=== PATIENT | male | born 1945 | race Caucasian/White ===

== ENCOUNTER → 2016-12-29 | Outpatient (CLI) | payer MEDICARE, OTHER | END | disposition home or self-care (01) | LOC: MRI 10:59 | PROVIDERS: ATTEND Psychiatry & Neurology Neurology | DX: M50.01 Cervical disc disorder with myelopathy, high cervical region (principal); M51.16 Intervertebral disc disorders with radiculopathy, lumbar region ==

== ENCOUNTER → 2017-01-19 | Outpatient (CLI) | payer MEDICARE, OTHER | LOC: GMAJ 13:05 | PROVIDERS: ATTEND Family Medicine | DX: E53.8 Deficiency of other specified B group vitamins (principal); E29.9 Testicular dysfunction, unspecified ==

== ENCOUNTER → 2017-01-30 | Outpatient (CLI) | payer MEDICARE, OTHER | LOC: GMAJ 14:37 | PROVIDERS: ATTEND Family Medicine | DX: D64.9 Anemia, unspecified (principal) ==

== ENCOUNTER 2017-04-02 17:00 | Inpatient (IN) | payer MEDICARE, OTHER ==
--- NOTE | 2017-04-02 17:29 | HP ---
SUPERVISING PHYSICIAN: Moises Contreras MD CHIEF COMPLAINT: Worsening shortness of breath. HISTORY OF PRESENT ILLNESS: Mr. Weaver is a 71 year-old male patient of Dr. Contreras. He has a longstanding history of chronic obstructive pulmonary disease. He was initially seen in the clinic on March [address] Contreras for exacerbation of COPD with bronchitis and was started on Levaquin and a Medrol tapering Dosepak. He had minimal response and returned to the clinic once again and was seen and given a Rocephin shot and placed on Augmentin. He has chronic obstructive pulmonary disease and a previous smoker with a 100 pack year history of smoking but having stopped the last 10 years. He noted that he continues to have severe shortness of breath and now a worsening productive cough that is becoming more purulent. In the clinic it was noted that on room air his saturation was in the 80s. He does wear oxygen at night. Given that he had failed to respond to outpatient treatment plan with multiple rounds of antibiotics and steroids and continued to show decline clinically, Dr. Contreras requested the patient be directly admitted to the hospital for initiation of parenteral antibiotics as well as more aggressive corticosteroid administration with Solu-Medrol and aggressive pulmonary hygiene in efforts to improve the patient's clinical presentation. The patient was directly admitted in stable condition. PAST MEDICAL HISTORY: 1. Hypertension. 2, Diabetes mellitus type 2. 3. 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 4. Renal insufficiency. 5. Chronic obstructive pulmonary disease. 6. History of chronic tobacco abuse with a smoking history of 100 pack per year , having quit within the last 10 years. 7. History of alcohol abuse. PAST SURGICAL HISTORY: None listed. CURRENT MEDICATIONS: 1. Spiriva 18 mcg daily. 2. Testosterone 200 mg IM ever 2 weeks. 3. Tamsulosin 0.4 mg at bedtime. 4. Daliresp 500 mcg daily. 5. Folic acid, iron, on tablet daily. 6. Flomax 64 mg daily. 7. Sadorus 10/325, 1 as needed twice a day. 8. Glimepiride 2 mg daily. 9. Nexium 40 mg daily. 10. Trulicity 0.7 mg subcu weekly. 11. Vitamin B12 injections 1000 mcg IM monthly. 12, Citalopram 40 mg daily, 13. Symbicort 160-4.5 mcg per actuation, one actuation b.i.d. 14. Albuterol succinate inhaler 2 puffs every 6 hours as needed p.r.n. ALLERGIES: NO KNOWN DRUG ALLERGIES. FAMILY HISTORY: Unremarkable. 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 He lives at home with his . He stopped smoking 10 years previous, before that had a history of smoking 100 packs year and he does have a remote history of alcohol abuse. REVIEW OF SYSTEMS: CONSTITUTIONAL: He denies fever or chills but notes he has had some weight loss ongoing for the last several years. HEENT: He has decreased hearing, no changes in vision. LUNGS: Chronic shortness of breath with a worsening cough, utilizing oxygen at home. CARDIOVASCULAR: Denies chest pains, palpitations or syncopal episodes. ABDOMEN : No nausea, vomiting, diarrhea or constipation. GENITOURINARY: Denies dysuria, hematuria or there urinary symptoms. NEUROLOGICAL: Denies syncopal episodes or neurological deficits. PHYSICAL EXAMINATION: GENERAL: On admission the patient appeared to be without any acute distress, although showing some low saturations without oxygen. He is alert and oriented x3. HEENT: Tympanic membranes and bilateral oropharynx pink. Mucous membranes slightly dry. NECK: No jugular venous distention. Neck supple, non-tender without full range of motion. CHEST: Breath sounds diminished bilaterally with some mild expiratory wheezing with a cough. CARDIOVASCULAR: Heart regular rate and rhythm without appreciable murmurs, gallops, or rubs. ABDOMEN: Soft, non-tender with positive bowel sounds. EXTREMITIES: No cyanosis, clubbing, or edema. NEUROLOGIC: He was alert and oriented x 3. LABORATORY: White count on admission 7.1, hemoglobin 11.6, hematocrit 36.1, platelet count 160,000, differential shows start of early left shift. Coagulation studies were not done. Chemistries showed normal electrolytes with potassium 4.1, BUN slightly elevated at 44, creatinine 1.08, glucose 167. Liver functions within normal limits. Urinalysis pending. RADIOLOGY: Chest x-ray pending. ASSESSMENT: 1. Acute exacerbation of chronic obstructive pulmonary disease having failed to respond to outpatient treatment therapy with multiple rounds of antibiotics. Now with concerns for developing pneumonia in a patient who is 02 dependent. 2. Hypertension. 3. Diabetes mellitus type 2. 4. Chronic anemia, hyperchromic, macrocytic indices. 5. Mild renal insufficiency with patient having a longstanding history of chronic kidney disease. PLAN: The patient is directly admitted to the hospital for initiation of antibiotic therapy and further workup. He was started on parenteral antibiotics to include azithromycin and Rocephin. Will also start him on aggressive pulmonary hygiene with chest physical therapy and initial loading dose of Solu-Medrol 125 mg, this to be followed up with 80 mg every 6 hours. He will be on 02 as needed, maintain 02 saturations greater than 92 to 94%. DVT prophylaxis as per protocol. Will anticipate length of stay to be 2 to 3 days. Until discharge we will continue to monitor him appropriately. #[id number] [facility]
[2017-04-02] MEDS ORDERED: DEXTROSE 50% 25 GM/50 ML SYG IV PRN (17:36)
[2017-04-02] MEDS ORDERED: ACETAMINOPHEN 325 MG TAB PO PRN (17:36)
[2017-04-02] MEDS ORDERED: GLUCAGON INJ 1 MG VIAL SUBCU PRN (17:36)
[2017-04-02] MEDS ORDERED: ALBUTEROL SULFATE 2.5 MG/3 ML VIAL NEB PRN (17:36)
[2017-04-02] MEDS ORDERED: methylPREDNISolone SODIUM SUC 125 MG/2 ML VIAL IV ONE (17:41)
[2017-04-02] MEDS ORDERED: AZITHROMYCIN IV 500 MG in SODIUM CHLORIDE 0.9% 250ML 250 ML IVPB SCH (18:00)
[2017-04-02] MEDS ORDERED: IV SET AND CAP CHANGE INJ INJ SCH (18:00)
[2017-04-02] MEDS ORDERED: SODIUM CHLORIDE 0.9% 250ML 250 ML ONE (18:18)
[2017-04-02] MEDS ORDERED: SODIUM CHL 0.9% 50ML MIN-BAG+ 50 ML IVPB ONE (18:18)
[2017-04-02] MEDS ORDERED: cefTRIAXone SODIUM 1 GM VIAL ONE (18:18)
[2017-04-02] MEDS ORDERED: AZITHROMYCIN IV 500 MG VIAL IVPB ONE (18:18)
[2017-04-02] MEDS: cefTRIAXone SODIUM 1 GM in SODIUM CHL 0.9% 50ML MIN-BAG+ 50 ML IVPB SCH (18:24)
[2017-04-02] MEDS: IPRATROPIUM/ALBUTEROL 3 ML VIAL INH SCH ×2 (18:30→20:26)
[2017-04-02] MEDS ORDERED: methylPREDNISolone SODIUM SUC 125 MG/2 ML VIAL ONE (20:26)
[2017-04-02] MEDS: NYSTATIN SUSPENSION 5 ML UD MT SCH (20:57)
[2017-04-02] MEDS: guaiFENesin ER TAB 600 MG TAB PO SCH (20:57)
[2017-04-02] MEDS: INSULIN LISPRO 100 UNITS/ML PEN SUBCU SCH (20:57)
[2017-04-02] MEDS: KCL 20MEQ/0.45% NS 1,000 ML IVS PRN (21:39)
[2017-04-03] MEDS: methylPREDNISolone SODIUM SUC 125 MG/2 ML VIAL IV SCH ×5 (00:10→20:12)
[2017-04-03] MEDS: SODIUM CHLORIDE 0.9% (FLUSH) 10 ML SYG IV PRN ×3 (00:12→20:12)
[2017-04-03] MEDS ORDERED: ALUM & MAG HYDROX-SIMETHICONE 30 ML UD PO PRN (00:45)
[2017-04-03] MEDS ORDERED: methylPREDNISolone SODIUM SUC 125 MG/2 ML VIAL ONE ×2 (00:51→07:51)
--- NOTE | 2017-04-03 06:41 | RAD ---
Procedure: XR CHEST 2 VIEWS Exam Date: 04/03/2017 Ordering Provider: Elian Melchor Clinical Indication: Pneumonia Comparison: 09/13/2015 Findings: Cardiac silhouette: Normal Pulmonary vasculature : Normal Mediastinal contour: Normal Aortic contour: Aortic calcification Focal lung consolidation: No focal lung consolidation. Lungs are hyperinflated. Pleural effusion: None Pneumothorax: None Acute bony or soft tissue abnormality: None Impression: 1. No acute abnormalities in the chest. Electronically signed by: Bertram Kumar MD 04/03/2017 6:40 AM CDT
[2017-04-03] MEDS ORDERED: PREGABALIN 25 MG CAP ONE (07:51)
[2017-04-03] MEDS: INSULIN LISPRO 100 UNITS/ML PEN SUBCU SCH ×4 (08:05→21:04)
[2017-04-03] MEDS: NYSTATIN SUSPENSION 5 ML UD MT SCH ×4 (08:30→20:14)
[2017-04-03] MEDS: PREGABALIN 25 MG CAP PO SCH (08:31)
[2017-04-03] MEDS: guaiFENesin ER TAB 600 MG TAB PO SCH ×2 (08:31→20:28)
[2017-04-03] MEDS: CITALOPRAM HBR 20 MG TAB PO SCH (10:00)
[2017-04-03] MEDS: IPRATROPIUM/ALBUTEROL 3 ML VIAL INH SCH ×4 (10:28→21:05)
[2017-04-03] MEDS: KCL 20MEQ/0.45% NS 1,000 ML IVS PRN (12:00)
[2017-04-03] MEDS ORDERED: SODIUM CHL 0.9% 50ML MIN-BAG+ 50 ML IVPB ONE (17:11)
[2017-04-03] MEDS ORDERED: cefTRIAXone SODIUM 1 GM VIAL ONE (17:11)
[2017-04-03] MEDS ORDERED: SODIUM CHLORIDE 0.9% 250ML 250 ML ONE (17:15)
[2017-04-03] MEDS ORDERED: AZITHROMYCIN IV 500 MG VIAL IVPB ONE (17:16)
[2017-04-03] MEDS: cefTRIAXone SODIUM 1 GM in SODIUM CHL 0.9% 50ML MIN-BAG+ 50 ML IVPB SCH (17:21)
[2017-04-03] MEDS ORDERED: PANTOPRAZOLE SODIUM IV 40 MG VIAL IV ONE (17:41)
[2017-04-03] MEDS: AZITHROMYCIN IV 500 MG in SODIUM CHLORIDE 0.9% 250ML 250 ML IVPB SCH (18:42)
[2017-04-03] MEDS: OMEPRAZOLE CAP 20 MG CAP PO SCH (20:14)
[2017-04-03] MEDS: TAMSULOSIN 0.4 MG CAP PO SCH (20:15)
[2017-04-03] MEDS: PREGABALIN 100 MG CAP PO SCH (20:21)
[2017-04-03] MEDS ORDERED: NON-FORMULARY MEDICATION 1 EA MIS (Esomeprazole Magnesium [Nexium] 40 MG) PO SCH (21:00)
[2017-04-03] MEDS: BUDESONIDE/FORMOTEROL 160/4.5 60 PUFF/6 GM INH INH SCH (21:10)
[2017-04-04] MEDS: methylPREDNISolone SODIUM SUC 125 MG/2 ML VIAL IV SCH ×3 (04:15→20:12)
[2017-04-04] MEDS ORDERED: BIFIDOBACTERIUM INFANTIS 4 MG CAP ONE (07:45)
[2017-04-04] MEDS: INSULIN LISPRO 100 UNITS/ML PEN SUBCU SCH ×4 (07:56→21:03)
[2017-04-04] MEDS: PREGABALIN 25 MG CAP PO SCH (08:01)
[2017-04-04] MEDS: NYSTATIN SUSPENSION 5 ML UD MT SCH ×4 (08:01→20:15)
[2017-04-04] MEDS: BIFIDOBACTERIUM INFANTIS 4 MG CAP PO SCH (08:01)
[2017-04-04] MEDS: CITALOPRAM HBR 20 MG TAB PO SCH (08:02)
[2017-04-04] MEDS: guaiFENesin ER TAB 600 MG TAB PO SCH ×2 (08:05→20:11)
[2017-04-04] MEDS: IPRATROPIUM/ALBUTEROL 3 ML VIAL INH SCH ×4 (08:32→20:02)
[2017-04-04] MEDS: BUDESONIDE/FORMOTEROL 160/4.5 60 PUFF/6 GM INH INH SCH ×3 (08:32→20:03)
[2017-04-04] MEDS: TIOTROPIUM INHALER INH SCH ×2 (08:33→08:37)
--- NOTE | 2017-04-04 11:31 | PN ---
SUPERVISING PHYSICIAN: Moises Contreras MD DATE: 04/03/17 SUBJECTIVE: The patient has no complaints of chest pain, nausea, vomiting, or diarrhea. He does complain that he feels like he needs to cough something up, but is unable to do so and prior to several days ago, that is all he did was cough, but he feels like he needs to have the phlegm come up. OBJECTIVE: VITAL SIGNS: Afebrile. Heart rate 90. Blood pressure 121/71. Respiratory rate 18. O2 saturation is 94% on 2 liters nasal cannula. LUNGS: Bilateral rhonchi throughout. He does have a few scattered expiratory wheezes in the upper parts of his lungs. He is still slightly diminished at the bases. CARDIAC: Regular rate and rhythm. ABDOMEN: Soft, nondistended, nontender. Bowel sounds are positive. EXTREMITIES: No cyanosis, clubbing or edema. NEUROLOGIC: Alert and oriented times three. LABORATORY: WBC down to 3.9, hemoglobin 12.5, hematocrit 39.3. Neutrophils are 95.7%. Blood sugars have run between 114 and 258 with the exception of his glucose, chemistries are basically within normal limits except his BUN is elevated at 33. Preliminary blood cultures are negative after 24 hours. Sputum culture is pending. Chest x-ray per radiologic interpretation shows no acute abnormalities in the chest. All other labs and films have been reviewed via the EMR. ASSESSMENT: 1. Acute exacerbation of chronic obstructive pulmonary disease having failed to respond to outpatient treatment therapy with multiple rounds of antibiotics, now with concerns for developing pneumonia in a patient who is 02 dependent. 2. Hypertension. 3. Diabetes mellitus type 2. 4. Chronic anemia, hyperchromic/macrocytic indices. 5. Mild renal insufficiency, improved. The patient does have a longstanding history of chronic kidney disease. PLAN: We will continue present supportive care. I have decreased his Solu- Medrol and will continue to taper that tomorrow. I have ordered routine labs in the morning. Encourage good pulmonary toilet. Continue to monitor his cultures and change antibiotics as appropriate. I have increased his Mucinex to 1200 mg b.i.d. Prior to discharge, he will need a pulmonary function test and hopefully on discharge we can have Dr. Contreras send him to a biological engineer. Otherwise, we will continue to monitor the patient closely and follow as needed. Dr. Contreras is the collaborating physician and available for consultation. [facility][id number] [facility]
[2017-04-04] MEDS ORDERED: SODIUM CHL 0.9% 50ML MIN-BAG+ 50 ML IVPB ONE (17:29)
[2017-04-04] MEDS ORDERED: SODIUM CHLORIDE 0.9% 250ML 250 ML ONE (17:29)
[2017-04-04] MEDS ORDERED: cefTRIAXone SODIUM 1 GM VIAL ONE (17:29)
[2017-04-04] MEDS ORDERED: AZITHROMYCIN IV 500 MG VIAL IVPB ONE (17:29)
[2017-04-04] MEDS: cefTRIAXone SODIUM 1 GM in SODIUM CHL 0.9% 50ML MIN-BAG+ 50 ML IVPB SCH (17:36)
[2017-04-04] MEDS: AZITHROMYCIN IV 500 MG in SODIUM CHLORIDE 0.9% 250ML 250 ML IVPB SCH (18:16)
[2017-04-04] MEDS: OMEPRAZOLE CAP 20 MG CAP PO SCH (20:11)
[2017-04-04] MEDS: TAMSULOSIN 0.4 MG CAP PO SCH (20:11)
[2017-04-04] MEDS: PREGABALIN 100 MG CAP PO SCH (20:11)
[2017-04-04] MEDS: SODIUM CHLORIDE 0.9% (FLUSH) 10 ML SYG IV PRN ×2 (20:11→21:01)
[2017-04-04] MEDS ORDERED: MAGNESIUM SULFATE PREMIX 2GM 2 GM in PREMIX BAG 1 BAG IVPB ONE (20:53)
[2017-04-04] MEDS ORDERED: MAGNESIUM SULFATE PREMIX 2GM 50 ML IVPB ONE (21:00)
--- NOTE | 2017-04-04 21:27 | PN ---
DATE: 04/04/17 SUPERVISING PHYSICIAN: Moises Contreras M.D. SUBJECTIVE: The patient is sitting up in his hospital bed. He is reading his paper. He feels much better today then he has in the past couple of days. He denies any chest pain, abdominal pain, nausea or vomiting. He did say he was coughing up some thick white phlegm but actually his cough is much better than yesterday. OBJECTIVE: VITAL SIGNS: He is afebrile, heart rate 98. It has gone up as high as 105. Blood pressure 106/63, respiratory rate 20, O2 sat is 94% on 2 liters nasal cannula. RESPIRATORY: A few scattered rhonchi in the apices and somewhat diminished at the bases, otherwise clear to auscultation. CARDIAC: Regular rate and rhythm. ABDOMEN: Soft, nondistended, non-tender. Bowel sounds are positive. EXTREMITIES: No cyanosis, clubbing or edema. NEUROLOGIC: He is awake , alert and oriented times three. LABORATORY: Sodium 140, potassium 4, chloride 103, carbon dioxide 31, BUN 28, creatinine 0.84, glucose has run between 179 and 308. Calcium 8.5, magnesium 1.7. WBCs are 8.8, hemoglobin 11.5, hematocrit 35.9, neutrophils 95.3%. Preliminary blood culture showed no growth after 48 hours. All other labs and films have been reviewed via the EMR. ASSESSMENT: 1. Acute exacerbation of chronic obstructive pulmonary disease having failed to respond to outpatient treatment therapy with multiple rounds of antibiotics, now with concerns for developing pneumonia in a patient who is 02 dependent. 2. Hypertension. 3. Diabetes mellitus type 2. 4. Chronic anemia, hyperchromic/macrocytic indices. 5. Mild renal insufficiency, improved. The patient does have a longstanding history of chronic kidney disease. PLAN: We will continue present supportive care. I have decreased his Solu- Medrol and it will be discontinued tonight. I will start him on oral Prednisone tomorrow. Routine labs and chest x-ray in the morning. Will continue to monitor his cultures. I have also ordered a Pulmonary Function Test tomorrow. He has seen Dr. Neil in the past but would like to see a new plan nurse. I will have Dr. Contreras send him to one of the pulmonologists that comes to [facility]. We will continue to monitor the patient closely and follow as needed. Dr. Contreras is the collaborating physician available for consultation. #[id number] [facility]
[2017-04-05 06:22] VITALS: O2SAT 98
--- NOTE | 2017-04-05 06:41 | RAD ---
Procedure: XR CHEST 2 VIEWS Exam Date: 04/05/2017 Ordering Provider: GERARDO HARRIS Clinical Indication: copd Comparison: 04/03/2017 Findings: Cardiac silhouette: Normal Pulmonary vasculature : Normal Mediastinal contour: Normal Aortic contour: Aortic calcification Focal lung consolidation: No focal lung consolidation. Changes of COPD. Pleural effusion: No pleural effusions. Scarring at the left costophrenic angle. Pneumothorax: None Acute bony or soft tissue abnormality: None Impression: 1. No acute abnormalities in the chest. Electronically signed by: Bertram Kumar MD 04/05/2017 6:39 AM CDT
[2017-04-05] MEDS: INSULIN LISPRO 100 UNITS/ML PEN SUBCU SCH ×2 (08:14→12:06)
[2017-04-05] MEDS: CITALOPRAM HBR 20 MG TAB PO SCH (08:56)
[2017-04-05] MEDS: BIFIDOBACTERIUM INFANTIS 4 MG CAP PO SCH (08:57)
[2017-04-05] MEDS ORDERED: predniSONE 20 MG TAB PO SCH (09:00)
[2017-04-05] MEDS: PREGABALIN 25 MG CAP PO SCH (09:01)
[2017-04-05] MEDS: guaiFENesin ER TAB 600 MG TAB PO SCH (09:02)
[2017-04-05] MEDS: NYSTATIN SUSPENSION 5 ML UD MT SCH (09:02)
[2017-04-05] MEDS: IPRATROPIUM/ALBUTEROL 3 ML VIAL INH SCH (09:35)
[2017-04-05] MEDS: TIOTROPIUM INHALER INH SCH (09:35)
[2017-04-05] MEDS: BUDESONIDE/FORMOTEROL 160/4.5 60 PUFF/6 GM INH INH SCH (09:35)
[2017-04-05 11:34] VITALS: BP 108/65; TEMP 97.6
--- NOTE | 2017-04-05 13:48 | DS ---
SUPERVISING PHYSICIAN: Moises Contreras MD DISCHARGE DIAGNOSIS: 1. Acute exacerbation of chronic obstructive pulmonary disease having failed to respond to outpatient treatment therapy with multiple rounds of antibiotics, now with concerns for developing pneumonia in a patient who is 02 dependent. 2. Hypertension. 3. Diabetes mellitus type 2. 4. Chronic anemia, hyperchromic/macrocytic indices. 5. Mild renal insufficiency, improved. The patient does have a longstanding history of chronic kidney disease. HISTORY OF PRESENT ILLNESS: Mr. Weaver is a 71 year-old male patient of Dr. Contreras. He has a longstanding history of chronic obstructive pulmonary disease. He was initially seen in the clinic on March [address] Contreras for exacerbation of chronic obstructive pulmonary disease with bronchitis and was started on Levaquin and a Medrol tapering Dosepak. He had minimal response and returned to the clinic once again and was seen and given a Rocephin shot and placed on Augmentin. He has chronic obstructive pulmonary disease and a previous smoker with a 100 pack year history of smoking but having stopped the last 10 years. He noted that he continues to have severe shortness of breath and now a worsening productive cough that is becoming more purulent. In the clinic it was noted that on room air his saturation was in the 80s. He does wear oxygen at night. Given that he had failed to respond to outpatient treatment plan with multiple rounds of antibiotics and steroids and continued to show decline clinically, Dr. Contreras requested the patient be directly admitted to the hospital for initiation of parenteral antibiotics as well as more aggressive corticosteroid administration with Solu-Medrol and aggressive pulmonary hygiene in efforts to improve the patient's clinical presentation. The patient was directly admitted in stable condition. HOSPITAL COURSE: The patient responded well to his IV Rocephin and azithromycin. He was also given IV steroids that were tapered down. Vital signs stabilized and his oxygen saturations remained in the low to mid 90s over the last 24 to 36 hours. He was afebrile. WBCs were 9.1 with hemoglobin of 11.5 and hematocrit 36. Blood sugars the last 24 hours have been 148 to 216. Chemistries are basically within normal limits with calcium slightly low at 8.1. His preliminary blood cultures were negative after 48 hours. Chest x-ray per radiologic interpretation today shows no acute abnormalities of the chest. He has been up walking in the junior with his oxygen with no acute distress. Clinically, he is much improved since his admission. He will be discharged home today. DISCHARGE PLAN: The patient will be discharged home in stable condition. Pulmonary function test was done today and he had seen Dr. Neil in the past, but does not want to see him again, but he would probably benefit from a pulmonary consult with one of the pulmonologists that come to [facility]. I have also referred him to pulmonary rehab and the will set that up with him on an outpatient basis. He has a followup appointment with Dr. Contreras on 04/10/17 at 2:15. I have discharged him on two additional days of azithromycin as well as giving him a one month supply of guaifenesin and prednisone taper. He is to return to the hospital or call Dr. Contreras' office for any further complications or problems. DISCHARGE MEDICATIONS: 1. Albuterol. 2. Spiriva. 3. Testosterone cypionate. 4. Tamsulosin. 5. Daliresp. 6. Hydrocodone. 7. Glimepiride. 8. Nexium. 9. Cyanocobalamin. 10. Trulicity. 11. Citalopram. 12. Symbicort. 13. Slow-Mag 14. Vitamins. 15. Lyrica. 16. Align. 17. Guaifenesin. 18. Prednisone. 19. Azithromycin. Dr. Contreras is the collaborating physician and available for consultation. #[id number] [facility]
[2017-04-05] MEDS ORDERED: AZITHROMYCIN 250 MG TAB PO SCH (18:30)
[2017-04-09] MEDS ORDERED: NON-FORMULARY MEDICATION 1 EA MIS (Dulaglutide [Trulicity] 0.75 MG) SC SCH (09:00)
== END 2017-04-05 13:00 | disposition home or self-care (01) | DRG 190 ==
LOC: MS 17:00
PROVIDERS: ADMIT Nurse Practitioner Family; ATTEND Nurse Practitioner Acute Care
DX: J44.0 Chronic obstructive pulmonary disease with (acute) lower respiratory infection (principal); J18.9 Pneumonia, unspecified organism; J44.1 Chronic obstructive pulmonary disease with (acute) exacerbation; I12.9 Hypertensive chronic kidney disease with stage 1 through stage 4 chronic kidney disease, or unspecified chronic kidney disease; N18.9 Chronic kidney disease, unspecified; E11.22 Type 2 diabetes mellitus with diabetic chronic kidney disease; D53.9 Nutritional anemia, unspecified; Z99.81 Dependence on supplemental oxygen; Z87.891 Personal history of nicotine dependence; Z79.52 Long term (current) use of systemic steroids; Z79.899 Other long term (current) drug therapy

== ENCOUNTER 2017-05-24 09:28 | Emergency (ER) | payer MEDICARE, OTHER ==
--- NOTE | 2017-05-24 09:52 | CT ---
Procedure: CT HEAD WITHOUT IV CONTRAST Exam Date: 05/24/2017 9:30 AM [employer] Ordering Provider: Bassem Madera Clinical Indication: possible stroke Comparison: None Technique: CT images of the head were obtained without contrast administration. Coronal and sagittal reformats were obtained. This exam was performed according to our departmental dose-optimization program which includes automated exposure control, adjustment of the mA and/or kV according to patient size and/or use of iterative reconstruction technique. Findings: Motion degraded exam. There is no acute cortical infarction, hemorrhage, midline shift, mass effect, or hydrocephalus. Few scattered areas of diminished attenuation are seen involving the subcortical and periventricular white matter, presumable related to small vessel occlusive disease. Mild global parenchymal volume loss is present. The calvaria and skull base are unremarkable. Paranasal sinuses and mastoid air cells are well aerated. Impression: No gross acute intracranial abnormality in the setting of motion degraded exam. Microvascular ischemic changes. Electronically signed by: Allie Weeks MD 05/24/2017 9:50 AM [employer]
[2017-05-24] MEDS ORDERED: SODIUM CHLORIDE 0.9% 1000ML 1,000 ML IVS ONE (10:26)
[2017-05-24] MEDS ORDERED: MAGNESIUM SULFATE INJ 2 GM in SODIUM CHLORIDE 0.9% 100ML 100 ML IVPB ONE (10:59)
[2017-05-24] MEDS ORDERED: MAGNESIUM SULFATE PREMIX 2GM 50 ML IVPB ONE (11:06)
[2017-05-24] MEDS ORDERED: DEXAMETHASONE INJ 4 MG/ML VIAL IV ONE (11:13)
[2017-05-24] MEDS ORDERED: PAMIDRONATE DISODIUM 60 MG in SODIUM CHLORIDE 0.9% 500ML 500 ML IVPB ONE (11:14)
--- NOTE | 2017-05-24 11:44 | RAD ---
Procedure: XR CHEST 1 VIEW Exam Date: 05/24/2017 9:35 AM [employer]ULT [employer]UC[employer] Ordering Provider: Bassem Madera Clinical Indication: hypoxia, ams Comparison: April 05, 2017 Findings: Lungs are hyperexpanded. No lobar consolidation, pleural effusion, or pneumothorax. Heart size is within normal limits. No acute osseous abnormality. Impression: COPD. No acute airspace disease. 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
--- NOTE | 2017-05-24 11:49 | ED.PDOC ---
History of Present Illness - General Chief Complaint: Neuro Symptoms/Deficits Stated Complaint: altered mental status Time Seen by Provider: 05/24/17 09:30 Source: patient, family Exam Limitations: clinical condition - History of Present Illness Initial Comments: the patient is a 71-year-old male presenting to the emergency room secondary to altered mental status and generalized weakness. The patient has been feeling progressively weak over the last 24-36 hours. His started to note some confusion yesterday afternoon. This morning he is very confused and is only able to mutter a few words. He is protecting his airway. He is alert. He moves his extremities to command. Sensation appears grossly preserved. Smile is symmetrical. He is able to close his eyes symmetrically. His eyes track well. His gait is unstable. Timing/Duration: 24 hours Severity: moderate Improving Factors: nothing Worsening Factors: nothing Associated Symptoms: malaise, weakness Allergies/Adverse Reactions: Allergies NO KNOWN ALLERGY Allergy (Unverified 11/03/14 11:54) Home Medications: Ambulatory Orders Albuterol Sulfate [Proair Hfa] 2 puff INH Q6H PRN 09/02/15 Budesonide-Formoterol Fumarate [Symbicort 160-4.5 Mcg/Act] 1 aer IN BID Citalopram Hydrobromide 40 mg PO DAILY 09/02/15 Cyanocobalamin Inj [Vitamin B-12 Inj] 1,000 mcg IM MONTHLY 09/02/15 Dulaglutide [Trulicity] 0.75 mg SC WKLY 09/02/15 Esomeprazole Magnesium [Nexium] 40 mg PO BEDTIME 09/02/15 Glimepiride 2 mg PO DAILY 09/02/15 HYDROcodone 10MG/APAP 325MG [[place] 10/325] 1 ea PO BID PRN 09/02/15 Roflumilast [Daliresp] 500 mcg PO DAILY 09/02/15 Tamsulosin HCl 0.4 mg PO BEDTIME 09/02/15 Testosterone Cypionate 200 mg IM .[id number] 09/02/15 Tiotropium [place] Monohydrate [Spiriva Handihaler] 18 mcg IN DAILY 09/02/15 Magnesium Chloride [Slow-Mag] 64 mg PO AC #30 tab 09/06/15 Vit W/ Ferrous Fumara [Pnv Folic Acid + Iron Mul 27-1 mg] 1 tab PO DAILY #30 tab 09/06/15 Lyrica 50 mg PO QAM 04/02/17 Lyrica 100 mg PO BEDTIME 04/02/17 Pregabalin [Lyrica] 04/02/17 Azithromycin Tab [Zithromax Tab] 250 mg PO DAILY #2 tab 04/05/17 Bifidobacterium Infantis [Align] 4 mg PO DAILY cap 04/05/17 guaiFENesin ER TAB [Mucinex Tab] 1,200 mg PO BID #60 tab 04/05/17 predniSONE See Taper PO DAILY #30 tab 04/05/17 Review of Systems - Review of Systems Constitutional: States: malaise, weakness EENTM: States: no symptoms reported Respiratory: States: no symptoms reported Cardiology: States: no symptoms reported Gastrointestinal/Abdominal: States: nausea - he did have one episode of vomiting yesterday Genitourinary: States: no symptoms reported Musculoskeletal: States: no symptoms reported Skin: States: no symptoms reported Neurological: States: weakness - generalized fatigue Endocrine: States: increased thirst All other Systems: No Change from Baseline Past Medical History (General) - Patient Medical History Hx Seizures: No Hx Stroke: No Hx Asthma: No Hx of COPD: Yes Hx Cardiac Disorders: No Hx Congestive Heart Failure: No Hx Pacemaker: No Hx Hypertension: No Hx Diabetes: Yes Hx MRSA: No Surgical History: no surgical history - Vaccination History Hx Influenza Vaccination: Yes Hx Pneumococcal Vaccination: Yes - Social History Hx Tobacco Use: Yes Hx Alcohol Use: No Hx Substance Use: No Hx Physical Abuse: No Hx Emotional Abuse: No Family Medical History - Family History Father Family History: Unknown Living Status: Physical Exam - Physical Exam General Appearance: Alert, No apparent distress Eye Exam: bilateral normal Ears, Nose, Throat: hearing grossly normal, normal ENT inspection - mucous membranes are fairly dry Neck: full range of motion, supple Respiratory: lungs clear, normal breath sounds, no respiratory distress, no accessory muscle use Cardiovascular/Chest: normal peripheral pulses, no edema, tachycardia, other - he patient appears to be a sinus tachycardia with frequent PACs. Peripheral Pulses: radial,right: 2+, radial,left: 2+, dorsalis pedis,right: 2+, dorsalis pedis,left: 2+ Gastrointestinal/Abdominal: non tender, soft Rectal Exam: deferred Back Exam: no CVA tenderness, no vertebral tenderness Extremity: non-tender, no pedal edema, no calf tenderness, normal capillary refill Neurologic: noteman II-XII nml as tested, alert, disoriented x 3 - the patient is unable to verbally express any functional responses. He does still largely seem to be able to reliably notyes or no to simple questions. Skin Exam: normal color Comments: Vital Signs - 24 hr 05/24/17 05/24/17 05/24/17 09:36 09:47 10:14 Temperature 98.2 F Pulse Rate [ 124 H 118 H Left Brachial] Respiratory 20 20 20 Rate Blood Pressure 159/105 157/98 [Left Arm] O2 Sat by Pulse 100 93 L Oximetry Progress - Progress Progress: 05/24/17 11:52 the patient is a 71-year-old male presenting to emergency room secondary to a progression of symptoms that appear to correspond with his hypercalcemia. He does have some acute renal failure. He is receiving a couple liters of IV fluids here and then he will receive a dose of IV Lasix. We do not have injectable calcitonin so the patient is receiving 2 sprays intranasal calcitonin. He is receiving a dose of IV pamidronate. He is receiving a dose of IV Decadron. He is receiving a dose of IV magnesium secondary to hypomagnesemia. The patient is alert and responsive to simple instructions. He is still having significant confusion however. The patient will be transferred for further evaluation and care. No known history of any malignancy in this patient. No unusual dietary changes are known. He does have a history of significant COPD with steroid usage in the past. A cortisol level has been sent. This is a send out lab. a PTH level has been sent but this is also a send out lab. transferred for higher level of care. I have discussed this patient with nephrology prior to the transfer. Their assistance is appreciated. - Results/Orders Results/Orders: final read on the chest x-ray is pending but I see no evidence of significant cardiomegaly, pneumothorax, pleural effusion or large pneumonia. CT scan of the head shows no evidence of any acute pathology. No hydrocephalus. Laboratory Tests 05/24/17 05/24/17 05/24/17 09:36 09:45 09:45 WBC 10.5 RBC 5.33 Hgb 17.0 Hct 50.7 MCV 95.2 H MCH 31.8 H MCHC 33.5 RDW 14.8 H Plt Count 225 MPV 8.2 Absolute Neuts (auto) 8.90 H Absolute Lymphs (auto) 0.50 L Absolute Monos (auto) 1.00 H Absolute Eos (auto) 0.00 Absolute Basos (auto) 0.00 Neutrophils % 85.2 H Lymphocytes % 5.1 L Monocytes % 9.5 H Eosinophils % 0.1 L Basophils % 0.1 PT INR PTT (SP) pCO2 61 H pO2 65 L HCO3 39.8 ABG pH 7.430 ABG O2 Saturation 93.6 L ABG Base Excess 12.6 ABG Deoxyhemoglobin 6.3 H Oxyhemoglobin % 91.3 L Carboxyhemoglobin % 1.8 H Methemoglobin % Sat 0.6 Calc Total Hemoglobin 15.2 Sodium 139 Potassium 3.6 Chloride 87 L Carbon Dioxide 40 H Anion Gap 15.6 BUN 36 H Creatinine 1.88 H BUN/Creatinine Ratio 19.1 Random Glucose 158 H Serum Osmolality 289.2 Lactic Acid Calcium 16.7 H* Phosphorus Magnesium 1.1 L Total Bilirubin 0.7 AST 25 ALT 19 Alkaline Phosphatase 73 Creatine Kinase 95 CK-MB (CK-2) 2.8 CK-MB (CK-2) % Not Reportable Troponin I 0.11 H* B-Natriuretic Peptide 574.0 H* Serum Total Protein 8.3 H Albumin 4.6 Globulin 3.7 H Albumin/Globulin Ratio 1.2 Amylase Lipase 05/24/17 05/24/17 05/24/17 09:45 09:45 10:27 WBC RBC Hgb Hct MCV MCH MCHC RDW Plt Count MPV Absolute Neuts (auto) Absolute Lymphs (auto) Absolute Monos (auto) Absolute Eos (auto) Absolute Basos (auto) Neutrophils % Lymphocytes % Monocytes % Eosinophils % Basophils % PT 9.8 INR 0.870 PTT (SP) 30.8 pCO2 pO2 HCO3 ABG pH ABG O2 Saturation ABG Base Excess ABG Deoxyhemoglobin Oxyhemoglobin % Carboxyhemoglobin % Methemoglobin % Sat Calc Total Hemoglobin Sodium Potassium Chloride Carbon Dioxide Anion Gap BUN Creatinine BUN/Creatinine Ratio Random Glucose Serum Osmolality Lactic Acid 0.9 Calcium Phosphorus 4.2 Magnesium Total Bilirubin AST ALT Alkaline Phosphatase Creatine Kinase CK-MB (CK-2) CK-MB (CK-2) % Troponin I B-Natriuretic Peptide Serum Total Protein Albumin Globulin Albumin/Globulin Ratio Amylase Lipase 05/24/17 10:29 WBC RBC Hgb Hct MCV MCH MCHC RDW Plt Count MPV Absolute Neuts (auto) Absolute Lymphs (auto) Absolute Monos (auto) Absolute Eos (auto) Absolute Basos (auto) Neutrophils % Lymphocytes % Monocytes % Eosinophils % Basophils % PT INR PTT (SP) pCO2 pO2 HCO3 ABG pH ABG O2 Saturation ABG Base Excess ABG Deoxyhemoglobin Oxyhemoglobin % Carboxyhemoglobin % Methemoglobin % Sat Calc Total Hemoglobin Sodium Potassium Chloride Carbon Dioxide Anion Gap BUN Creatinine BUN/Creatinine Ratio Random Glucose Serum Osmolality Lactic Acid Calcium Phosphorus Magnesium 1.2 L Total Bilirubin AST ALT Alkaline Phosphatase Creatine Kinase CK-MB (CK-2) CK-MB (CK-2) % Troponin I B-Natriuretic Peptide Serum Total Protein Albumin Globulin Albumin/Globulin Ratio Amylase 53 Lipase 15 L EKG shows some sinus tachycardia at a rate of 123 bpm. Normal corrected QT interval. No definitive ST segment changes concerning for any localized ischemia. Mild right axis deviation. Borderline criteria for LVH. - EKG/XRAY/CT CT Ordered: Yes Departure - Departure Clinical Impression: Hypercalcemia, Delirium, Hypomagnesemia Acute renal failure Qualifiers: Acute renal failure type: unspecified Qualified Code(s): N17.9 - Acute kidney failure, unspecified Disposition: Transfer to Hospital Referrals: Moises Contreras MD [Primary Care Provider] - 1-2 Weeks Home Medications: Ambulatory Orders Albuterol Sulfate [Proair Hfa] 2 puff INH Q6H PRN 09/02/15 Budesonide-Formoterol Fumarate [Symbicort 160-4.5 Mcg/Act] 1 aer IN BID Citalopram Hydrobromide 40 mg PO DAILY 09/02/15 Cyanocobalamin Inj [Vitamin B-12 Inj] 1,000 mcg IM MONTHLY 09/02/15 Dulaglutide [Trulicity] 0.75 mg SC WKLY 09/02/15 Esomeprazole Magnesium [Nexium] 40 mg PO BEDTIME 09/02/15 Glimepiride 2 mg PO DAILY 09/02/15 HYDROcodone 10MG/APAP 325MG [[place] 10/325] 1 ea PO BID PRN 09/02/15 Roflumilast [Daliresp] 500 mcg PO DAILY 09/02/15 Tamsulosin HCl 0.4 mg PO BEDTIME 09/02/15 Testosterone Cypionate 200 mg IM .[id number] 09/02/15 Tiotropium [place] Monohydrate [Spiriva Handihaler] 18 mcg IN DAILY 09/02/15 Magnesium Chloride [Slow-Mag] 64 mg PO AC #30 tab 09/06/15 Vit W/ Ferrous Fumara [Pnv Folic Acid + Iron Mul 27-1 mg] 1 tab PO DAILY #30 tab 09/06/15 Lyrica 50 mg PO QAM 04/02/17 Lyrica 100 mg PO BEDTIME 04/02/17 Pregabalin [Lyrica] 04/02/17 Azithromycin Tab [Zithromax Tab] 250 mg PO DAILY #2 tab 04/05/17 Bifidobacterium Infantis [Align] 4 mg PO DAILY cap 04/05/17 guaiFENesin ER TAB [Mucinex Tab] 1,200 mg PO BID #60 tab 04/05/17 predniSONE See Taper PO DAILY #30 tab 04/05/17 Transfer to Outside Facility - Transfer Information Accepting Provider:: dr mcgregor Accepting Facility: [facility] Reason for Transfer: required specialist not available
[2017-05-24 12:32] VITALS: TEMP 98.6
[2017-05-24] MEDS ORDERED: FUROSEMIDE INJ 20 MG/2 ML VIAL ONE (12:54)
[2017-05-24] MEDS ORDERED: FUROSEMIDE INJ 40 MG/4 ML VIAL IV ONE (12:55)
[2017-05-24 13:26] VITALS: BP 160/91; O2SAT 95
[2017-05-25] MEDS ORDERED: CALCITONIN-SALMON NASAL SPRAY 2,200 IU/ML BOTTLE ALTNOS ONE (11:07)
== END 2017-05-24 13:05 | disposition short-term general hospital (02) ==
LOC: ER 09:28
DX: E83.52 Hypercalcemia (principal); E83.42 Hypomagnesemia; R41.0 Disorientation, unspecified; N17.9 Acute kidney failure, unspecified; J44.9 Chronic obstructive pulmonary disease, unspecified; Z79.899 Other long term (current) drug therapy
CPT/HCPCS: 36415; 36600; 70450; 71010; 80053; 81001; 82150; 82550; 82553; 82803; 82805; 83605; 83690; 83735; 83880; 83970; 84100; 84484; 85025; 85610; 85730; 87040; 93005; J1100; J1940; J3475; J7030

== ENCOUNTER → 2017-05-31 | Outpatient (CLI) | payer MEDICARE, OTHER | END | disposition home or self-care (01) | LOC: GMAJ 14:44 | PROVIDERS: ATTEND Family Medicine | DX: D64.9 Anemia, unspecified (principal) ==

== ENCOUNTER 2017-09-07 11:02 | Emergency (ER) | payer MEDICARE, OTHER ==
[2017-09-07 11:37] VITALS: TEMP 98.1
--- NOTE | 2017-09-07 12:00 | ED.PDOC ---
History of Present Illness - General Chief Complaint: Respiratory Problem Stated Complaint: shortness of breath, nausea, constipation Time Seen by Provider: 09/07/17 11:49 Source: patient Exam Limitations: no limitations - History of Present Illness Initial Comments: Patient presents complaining of constipation. He says that he was switched from Lyrica to hydrocodone for diabetic neuropathy but the hydrocodone caused constipation. He had a normal bowel movement two days ago and had a "small one " this morning. No abdominal pain. He thinks he is dehydrated as well. He did urinate "a little" this morning. He recently had a COPD exacerbation and is being treated with prednisone and Levaquin. He says he did not get an X-ray for that. No cough. No dyspnea. Denies chest pain. No other complaints. Timing/Duration: other - two days Severity: mild Improving Factors: nothing Worsening Factors: nothing Associated Symptoms: denies symptoms Allergies/Adverse Reactions: Allergies NO KNOWN ALLERGY Allergy (Unverified 11/03/14 11:54) Home Medications: Ambulatory Orders Albuterol Sulfate [Proair Hfa] 2 puff INH Q6H PRN 09/02/15 Budesonide-Formoterol Fumarate [Symbicort 160-4.5 Mcg/Act] 1 aer IN BID Citalopram Hydrobromide 40 mg PO DAILY 09/02/15 Cyanocobalamin Inj [Vitamin B-12 Inj] 1,000 mcg IM MONTHLY 09/02/15 Dulaglutide [Trulicity] 0.75 mg SC WKLY 09/02/15 Esomeprazole Magnesium [Nexium] 40 mg PO BEDTIME 09/02/15 Glimepiride 2 mg PO DAILY 09/02/15 HYDROcodone 10MG/APAP 325MG [[place] 10/325] 1 ea PO BID PRN 09/02/15 Roflumilast [Daliresp] 500 mcg PO DAILY 09/02/15 Tamsulosin HCl 0.4 mg PO BEDTIME 09/02/15 Testosterone Cypionate 200 mg IM .[id number] 09/02/15 Tiotropium [place] Monohydrate [Spiriva Handihaler] 18 mcg IN DAILY 09/02/15 Magnesium Chloride [Slow-Mag] 64 mg PO AC #30 tab 09/06/15 Vit W/ Ferrous Fumara [Pnv Folic Acid + Iron Mul 27-1 mg] 1 tab PO DAILY #30 tab 09/06/15 Lyrica 50 mg PO QAM 04/02/17 Lyrica 100 mg PO BEDTIME 04/02/17 Pregabalin [Lyrica] 04/02/17 Azithromycin Tab [Zithromax Tab] 250 mg PO DAILY #2 tab 04/05/17 Bifidobacterium Infantis [Align] 4 mg PO DAILY cap 04/05/17 guaiFENesin ER TAB [Mucinex Tab] 1,200 mg PO BID #60 tab 04/05/17 predniSONE See Taper PO DAILY #30 tab 04/05/17 Review of Systems - Review of Systems Constitutional: States: no symptoms reported EENTM: States: no symptoms reported Respiratory: States: no symptoms reported Cardiology: States: no symptoms reported Gastrointestinal/Abdominal: States: see HPI Genitourinary: States: see HPI Musculoskeletal: States: no symptoms reported Skin: States: no symptoms reported Neurological: States: no symptoms reported Endocrine: States: no symptoms reported Hematologic/Lymphatic: States: no symptoms reported Past Medical History (General) - Patient Medical History Hx Seizures: No Hx Stroke: No Hx Asthma: No Hx of COPD: Yes Hx Cardiac Disorders: No Hx Congestive Heart Failure: No Hx Pacemaker: No Hx Hypertension: No Hx Diabetes: Yes Hx Gastroesophageal Reflux: Yes Hx Renal Disease: No Hx MRSA: No Surgical History: no surgical history - Vaccination History Hx Influenza Vaccination: Yes - 2016 Hx Pneumococcal Vaccination: Yes - 2017 - Social History Hx Tobacco Use: Yes Years Tobacco Use: 50 Hx Alcohol Use: No Hx Substance Use: No Hx Physical Abuse: No Hx Emotional Abuse: No Family Medical History - Family History Father Family History: Unknown Living Status: Physical Exam - Physical Exam General Appearance: Alert Eye Exam: bilateral normal Ears, Nose, Throat: normal ENT inspection Neck: non-tender, full range of motion, supple Respiratory: lungs clear, other - distant breath sounds Cardiovascular/Chest: normal peripheral pulses, regular rate, rhythm, no edema Gastrointestinal/Abdominal: normal bowel sounds, non tender, soft Back Exam: no CVA tenderness Neurologic: forest 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 II-XII nml as tested, no motor/sensory deficits, alert Skin Exam: normal color Lymphatic: no adenopathy Progress - Progress Progress: 09/07/17 14:14 Laboratory Tests 09/07/17 09/07/17 09/07/17 12:00 12:00 12:15 WBC 7.4 RBC 4.46 L Hgb 14.4 Hct 42.7 MCV 95.8 H MCH 32.2 H MCHC 33.8 RDW 14.5 Plt Count 246 MPV 7.3 L Absolute Neuts (auto) 6.50 Absolute Lymphs (auto) 0.40 L Absolute Monos (auto) 0.50 Absolute Eos (auto) 0.00 Absolute Basos (auto) 0.00 Neutrophils % 87.0 H Lymphocytes % 5.6 L Monocytes % 7.2 Eosinophils % 0.0 L Basophils % 0.2 Sodium 137 Potassium 4.3 Chloride 97 L Carbon Dioxide 30 Anion Gap 14.3 BUN 21 H Creatinine 1.16 BUN/Creatinine Ratio 18.1 Random Glucose 164 H Serum Osmolality 280.4 Calcium 10.1 Total Bilirubin 0.5 AST 19 ALT 12 Alkaline Phosphatase 60 Serum Total Protein 7.1 Albumin 3.9 Globulin 3.2 Albumin/Globulin Ratio 1.2 Urine Color Yellow Urine Appearance Clear Urine pH 5.5 Ur Specific [place] 1.025 Urine Protein Negative Urine Glucose (UA) Negative Urine Ketones Trace Urine Blood Negative Urine Nitrite Negative Urine Bilirubin Negative Urine Urobilinogen 0.2 Ur Leukocyte Esterase Negative Urine RBC 0 Urine WBC 0 Ur Epithelial Cells 1-3 Urine Bacteria 0 CXR showed signs of the current pneumonia that is already being treated. Patient given one liter NS IV. Given magnesium citrate for constipation and told to increase fluids. Departure - Departure Clinical Impression: Constipation Disposition: Discharge to Home or Self Care Condition: Good Departure Forms: ED Discharge - Pt. Copy, Patient Portal Self Enrollment Diet: other - increase oral fluids Activity: increase activity as tolerated Referrals: Moises Contreras MD [Primary Care Provider] - 1-2 Weeks Home Medications: Ambulatory Orders Albuterol Sulfate [Proair Hfa] 2 puff INH Q6H PRN 09/02/15 Budesonide-Formoterol Fumarate [Symbicort 160-4.5 Mcg/Act] 1 aer IN BID Citalopram Hydrobromide 40 mg PO DAILY 09/02/15 Cyanocobalamin Inj [Vitamin B-12 Inj] 1,000 mcg IM MONTHLY 09/02/15 Dulaglutide [Trulicity] 0.75 mg SC WKLY 09/02/15 Esomeprazole Magnesium [Nexium] 40 mg PO BEDTIME 09/02/15 Glimepiride 2 mg PO DAILY 09/02/15 HYDROcodone 10MG/APAP 325MG [[place] [address]] 1 ea PO BID PRN 09/02/15 Roflumilast [Daliresp] 500 mcg PO DAILY 09/02/15 Tamsulosin HCl 0.4 mg PO BEDTIME 09/02/15 Testosterone Cypionate 200 mg IM .[id number] 09/02/15 Tiotropium [place] Monohydrate [Spiriva Handihaler] 18 mcg IN DAILY 09/02/15 Magnesium Chloride [Slow-Mag] 64 mg PO AC #30 tab 09/06/15 Vit W/ Ferrous Fumara [Pnv Folic Acid + Iron Mul 27-1 mg] 1 tab PO DAILY #30 tab 09/06/15 Lyrica 50 mg PO QAM 04/02/17 Lyrica 100 mg PO BEDTIME 04/02/17 Pregabalin [Lyrica] 04/02/17 Azithromycin Tab [Zithromax Tab] 250 mg PO DAILY #2 tab 04/05/17 Bifidobacterium Infantis [Align] 4 mg PO DAILY cap 04/05/17 guaiFENesin ER TAB [Mucinex Tab] 1,200 mg PO BID #60 tab 04/05/17 predniSONE See Taper PO DAILY #30 tab 04/05/17 Additional Instructions: Increase your oral intake of fluids especially today and tomorrow.
--- NOTE | 2017-09-07 12:34 | RAD ---
EXAM DESCRIPTION: Chest,1 View CLINICAL HISTORY: recent COPD exacerbation COMPARISON: May 21 IMPRESSION: Single AP portable upright view of the chest shows cardiac silhouette and pulmonary vasculature to be within normal limits. Lungs are hyperinflated. Mild increased interstitial markings in the lung bases are slightly more prominent than previous and could represent atelectasis versus developing interstitial infiltrates or pneumonitis. No consolidation is seen. No obvious pleural effusion or pneumothorax is seen. Electronically signed by: David Bailey MD 09/07/2017 12:33 PM FORMULATION CHEMIST
[2017-09-07] MEDS ORDERED: SODIUM CHLORIDE 0.9% 1000ML 1,000 ML IVS ONE (12:45)
[2017-09-07] MEDS ORDERED: MAGNESIUM CITRATE 300 ML BTTL PO ONE (14:13)
[2017-09-07 14:49] VITALS: BP 153/82; O2SAT 98
== END 2017-09-07 14:49 | disposition home or self-care (01) ==
LOC: ER 11:02
DX: K59.00 Constipation, unspecified (principal); E11.9 Type 2 diabetes mellitus without complications; K21.9 Gastro-esophageal reflux disease without esophagitis; J44.9 Chronic obstructive pulmonary disease, unspecified; Z87.891 Personal history of nicotine dependence
CPT/HCPCS: 36415; 71045; 80053; 81001; 85025; J7030

== ENCOUNTER 2017-09-20 21:08 | Inpatient (IN) | payer MEDICARE, OTHER ==
--- NOTE | 2017-09-20 21:48 | RAD ---
EXAM DESCRIPTION: Chest,2 Views CLINICAL HISTORY: sob COMPARISON: 09/07/2017 FINDINGS: Two views of the chest are submitted. Cardiac silhouette appears normal. There is atelectasis at each lung base. The lungs are hyperinflated. There are small bilateral pleural effusions. There is a small right lung base consolidation. IMPRESSION: Right lung base consolidation. Electronically signed by: Mateus Hilton 09/20/2017 9:46 PM CDT
[2017-09-20] MEDS ORDERED: POTASSIUM CHLORIDE ELIXIR 20 MEQ/15 ML UD PO ONE (21:58)
[2017-09-20] MEDS ORDERED: IPRATROPIUM/ALBUTEROL 3 ML VIAL NEB ONE (22:00)
[2017-09-20] MEDS ORDERED: AZITHROMYCIN IV 500 MG in SODIUM CHLORIDE 0.9% 250ML 250 ML IVPB ONE (22:00)
[2017-09-20] MEDS ORDERED: cefTRIAXone SODIUM 1 GM in SODIUM CHL 0.9% 50ML MIN-BAG+ 50 ML IVPB ONE (22:00)
[2017-09-20] MEDS ORDERED: cefTRIAXone SODIUM 1 GM VIAL ONE (22:10)
[2017-09-20] MEDS ORDERED: SODIUM CHLORIDE 0.9% 250ML 250 ML ONE (22:10)
[2017-09-20] MEDS ORDERED: AZITHROMYCIN IV 500 MG VIAL IVPB ONE (22:10)
[2017-09-20] MEDS ORDERED: SODIUM CHL 0.9% 50ML MIN-BAG+ 50 ML IVPB ONE (22:10)
--- NOTE | 2017-09-21 01:14 | ED.PDOC ---
History of Present Illness - General Chief Complaint: Respiratory Problem Stated Complaint: Can't breath Time Seen by Provider: 09/20/17 21:13 Source: patient Exam Limitations: no limitations - History of Present Illness Initial Comments: the patient is a 72-year-old male presenting to the emergency room secondary to feeling like she is having a more difficult time breathing over the last 24-48 hours. The patient was seen in the emergency room a little less than 2 weeks ago and was diagnosed with possible mild pneumonia and a COPD exacerbation. He was apparently placed on prednisone and Levaquin. He completed the course of those medications but reports that he never really got better. He apparently went to see his primary care doctor today but no changes were made. He went back home and felt like he was getting more short of breath so he presented here to the emergency room. He does wear oxygen normally at 3 L and is actually saturating greater than 95% on that. He is very anxious and is feeling significantly short of breath. No fevers. Minimally productive cough. No real chest pain. He does report a significant weight loss over the last 2 weeks. No current sore throat or runny nose but he did have one earlier. No vomiting. Timing/Duration: unsure Severity: moderate Improving Factors: nothing Worsening Factors: nothing Associated Symptoms: cough, shortness of breath Allergies/Adverse Reactions: Allergies NO KNOWN ALLERGY Allergy (Unverified 11/03/14 11:54) Home Medications: Ambulatory Orders Albuterol Sulfate [Proair Hfa] 2 puff INH Q6H PRN 09/02/15 Budesonide-Formoterol Fumarate [Symbicort 160-4.5 Mcg/Act] 1 aer IN BID Tamsulosin HCl 0.4 mg PO BEDTIME 09/02/15 Tiotropium [place] Monohydrate [Spiriva Handihaler] 18 mcg IN DAILY 09/02/15 Ferrous Gluconate [Fergon] 27 mg PO DAILY 09/20/17 Gabapentin (Phn) [Gralise Starter] 1 mis PO BID 09/20/17 Lubiprostone [Amitiza] 8 mcg PO BID 09/20/17 Pantoprazole Sodium 40 mg PO DAILY 09/20/17 Triamcinolone Acetonide (Nasal [Nasacort Allergy 24Hr] 55 mcg NA BID 09/20/17 Review of Systems - Review of Systems Constitutional: States: malaise, weakness EENTM: States: no symptoms reported Respiratory: States: cough, short of breath, wheezing Cardiology: States: no symptoms reported Gastrointestinal/Abdominal: States: no symptoms reported Genitourinary: States: no symptoms reported Musculoskeletal: States: no symptoms reported Skin: States: no symptoms reported Neurological: States: anxiety Endocrine: States: unexplained weight loss Hematologic/Lymphatic: States: no symptoms reported All other Systems: No Change from Baseline Past Medical History (General) - Patient Medical History Hx Seizures: No Hx Stroke: No Hx Dementia: No Hx Asthma: Yes Hx of COPD: Yes Hx Cardiac Disorders: No Hx Congestive Heart Failure: No Hx Pacemaker: No Hx Hypertension: No Hx Thyroid Disease: No Hx Diabetes: Yes Hx Gastroesophageal Reflux: Yes Hx Renal Disease: No Hx Cancer: No Hx of HIV: No Hx Hepatitis C: No Hx MRSA: No Surgical History: no surgical history - Vaccination History Hx Tetanus, Diphtheria Vaccination: Yes Hx Influenza Vaccination: Yes Hx Pneumococcal Vaccination: Yes Immunizations Up to Date: Yes - Social History Hx Tobacco Use: Yes - Quit 10 yrs ago Hx Chewing Tobacco Use: No Hx Alcohol Use: No Hx Substance Use: No Hx Substance Use Treatment: No Hx Depression: No Feels Threatened In a Relationship: No Hx Physical Abuse: No Hx Emotional Abuse: No Hx Suspected Abuse: No - Activities of Daily Living Hospice Agency (if applicable):: None - Female History Patient is a Female of Child Bearing Age (10 -59 yrs old): No Family Medical History - Family History Father Family History: Unknown Living Status: Hx Family Asthma: No Hx Family Congestive Heart Failure: No Hx Family Hypertension: No Hx Family Stroke: No Hx Cardiac Disease: No Hx Family Diabetes: No Hx Family Cancer: No Physical Exam - Physical Exam General Appearance: Alert, Anxious Eye Exam: bilateral normal Ears, Nose, Throat: hearing grossly normal, normal ENT inspection, normal pharynx Neck: full range of motion, supple Respiratory: other - he patient does have mild accessory muscle use. He is in minimal respiratory distress but he is very anxious and feeling short of breath. Mild scattered wheezes. He does have some mild bibasilar Rales as well Cardiovascular/Chest: normal peripheral pulses, no edema, tachycardia Peripheral Pulses: radial,right: 2+, radial,left: 2+, dorsalis pedis,right: 2+, dorsalis pedis,left: 2+ Gastrointestinal/Abdominal: non tender, soft Rectal Exam: deferred Back Exam: no CVA tenderness, no vertebral tenderness Extremity: non-tender, normal inspection, no pedal edema, normal capillary refill Neurologic: slip operator II-XII nml as tested, alert, normal mood/affect, oriented x 3 Skin Exam: normal color Comments: Vital Signs - 24 hr 09/20/17 09/20/17 09/20/17 21:10 22:08 22:10 Temperature 97.6 F 97.8 F Pulse Rate 122 H 123 H 126 H Pulse Rate [ 124 H 126 H Apical] Respiratory 24 23 25 H Rate Blood Pressure 160/99 143/91 [Left Arm] O2 Sat by Pulse 95 95 97 Oximetry 09/20/17 09/21/17 23:00 00:10 Temperature 97.6 F 97.7 F Pulse Rate 123 H 121 H Pulse Rate [ 123 H 121 H Apical] Respiratory 22 20 Rate Blood Pressure 136/87 133/87 [Left Arm] O2 Sat by Pulse 98 96 Oximetry EKG shows sinus tachycardia at a rate of 126 bpm. There is some poorly progression in anterior leads. Mild right axis deviation consistent with chronic pulmonary disease. No acute ST segment changes are obvious. Normal QT interval. Chest x-ray shows right lower lobe infiltrate and changes consistent with COPD. Progress - Progress Progress: 09/21/17 01:17 the patient is a 72-year-old male presenting to the emergency room with worsening shortness of breath. He does appear to be having a mild worsening of his COPD exacerbation and he does have a right lower lobe pneumonia that has not cleared over the last couple of weeks. The patient will be admitted for treatment as an outpatient failure. The patient is receiving Rocephin and azithromycin IV. Blood Culture has been performed. He will also receive Solu-Medrol IV. He will continue his oxygen therapy. He has been receiving nebulizer treatments here. The patient may yet require something for anxiety and air hunger. Admit for further management for outpatient treatment failure of his COPD and pneumonia No evidence of sepsis at this time. the patient does have a mildly elevated CK-MB. Troponin is negative. It may be worth repeating one more time these labs in the morning. He is not having any chest pain. EKG is not indicative of any acute ischemia. The elevation of the CK-MB is more likely related to the pneumonia. 09/21/17 01:21 - Results/Orders Results/Orders: Laboratory Tests 09/20/17 09/20/17 09/21/17 21:26 21:26 00:45 WBC 8.1 RBC 4.13 L Hgb 13.4 L Hct 39.3 L MCV 95.1 H MCH 32.4 H MCHC 34.1 RDW 15.1 H Plt Count 216 MPV 7.0 L Absolute Neuts (auto) 6.60 Absolute Lymphs (auto) 0.60 L Absolute Monos (auto) 0.80 Absolute Eos (auto) 0.10 Absolute Basos (auto) 0.00 Neutrophils % 80.8 H Lymphocytes % 7.3 L Monocytes % 10.1 H Eosinophils % 1.5 Basophils % 0.3 Sodium 137 Potassium 3.0 L Chloride 98 L Carbon Dioxide 28 Anion Gap 14.0 BUN 11 Creatinine 0.68 BUN/Creatinine Ratio 16.2 Random Glucose 119 H Serum Osmolality 274.4 L Calcium 9.3 Total Bilirubin 0.6 AST 21 ALT 17 Alkaline Phosphatase 69 Creatine Kinase 64 66 CK-MB (CK-2) 6.3 H* 6.8 H* CK-MB (CK-2) % 9.84 H 10.30 H Troponin I < 0.02 < 0.02 B-Natriuretic Peptide 94.0 Serum Total Protein 6.7 Albumin 3.6 Globulin 3.1 Albumin/Globulin Ratio 1.2 Departure - Departure Clinical Impression: Acute exacerbation of COPD with asthma Pneumonia Qualifiers: Pneumonia type: due to unspecified organism Laterality: right Lung location: lower lobe of lung Qualified Code(s): J18.1 - Lobar pneumonia, unspecified organism Disposition: Admit Patient Home Medications: Ambulatory Orders Albuterol Sulfate [Proair Hfa] 2 puff INH Q6H PRN 09/02/15 Budesonide-Formoterol Fumarate [Symbicort 160-4.5 Mcg/Act] 1 aer IN BID Tamsulosin HCl 0.4 mg PO BEDTIME 09/02/15 Tiotropium [place] Monohydrate [Spiriva Handihaler] 18 mcg IN DAILY 09/02/15 Ferrous Gluconate [Fergon] 27 mg PO DAILY 09/20/17 Gabapentin (Phn) [Gralise Starter] 1 mis PO BID 09/20/17 Lubiprostone [Amitiza] 8 mcg PO BID 09/20/17 Pantoprazole Sodium 40 mg PO DAILY 09/20/17 Triamcinolone Acetonide (Nasal [Nasacort Allergy 24Hr] 55 mcg NA BID 09/20/17 Decision To Admit - Decistion To Admit Decision to Admit Reason: Medical Nature Decision to Admit Date: 09/21/17 Decision to Admit Time: 01:29
[2017-09-21] MEDS ORDERED: SODIUM CHLORIDE 0.9% 1000ML 500 ML IVS ONE (01:20)
[2017-09-21] MEDS ORDERED: methylPREDNISolone SODIUM SUC 40 MG/ML VIAL IV ONE ×4 (01:20→18:00)
[2017-09-21] MEDS ORDERED: KCL 20 MEQ/NS 1,000 ML IVS PRN (02:16)
[2017-09-21] MEDS ORDERED: ACETAMINOPHEN 325 MG TAB PO PRN (02:16)
[2017-09-21] MEDS ORDERED: MAGNESIUM HYDROXIDE 30 ML UD PO PRN (02:16)
[2017-09-21] MEDS ORDERED: SODIUM CHLORIDE 0.9% (FLUSH) 10 ML SYG IV PRN (02:16)
[2017-09-21] MEDS ORDERED: KCL 40 MEQ/WATER FOR INJ 100ML 40 MEQ in PREMIX BAG 1 BAG IVPB ONE (02:27)
--- NOTE | 2017-09-21 03:01 | HP ---
HISTORY OF PRESENT ILLNESS: This 72-year-old, white male is admitted to the hospital from the Emergency Room because of chronic shortness of breath withe acute exacerbation to the point of "can't breathe." The patient has been getting somewhat worse for the last several days. He was seen in the Emergency Room in May of last year and was referred to [facility] for acute renal failure and other metabolic parameter dysfunctions. He has had a chronic history of end-stage chronic obstructive pulmonary disease with over a 100 pack year history of smoking having stopped about 10 years ago. He last saw Dr. Contreras, his primary care provider, on Sunday or approximately two days before his admission. At that time, he was talking and was able to be fairly comfortable. He subsequently has had significantly worsening shortness of breath to the point that the Emergency Room required inpatient admission after finding a right lower lobe infiltrate as well as advanced chronic obstructive pulmonary disease in the Emergency Room. Low potassium of 3.0 and tachypnea of 25 was noted. After his arrival in the hospital bed, he was on the bedside commode and proceed to have acute respiratory failure. He was so short of breath he could hardly talk. His color was very ashen. He was noted to have a pulse of 180 to 190 with some strain pattern evident. He was helped from the bedside commode back to the bed and rescue breathing and bronchodilation was given. He was also given an extra dose of anti-inflammatory, Solu-Medrol IV with his dosage schedule adjusted accordingly. Elevated jugular venous distention also was noted. With a rapid pulse and the evidence of acute respiratory failure with elevated CO2 and low oxygen with saturations in the 70s and 80s, the concern for an acute pulmonary emboli was noted with the patient being on Lovenox prophylaxis, but no evidence of DVT clinically evident and negative past history of the same. After blood gases showed significant evidence of respiratory failure, he was placed on BiPAP support and showed significant improvement steadily as respiratory support continued. Negative past history of intubation required in the past. The patient will benefit from home BiPAP administration to help prevent the significant respiratory fatigue that the patient presents with after admission to the hospital. The patient is admitted to the hospital in serious condition and will require ongoing snf care. PAST MEDICAL HISTORY: 1. End-stage chronic obstructive pulmonary disease from chronic smoking, now stopped. 2. Hypertension. 3. Diabetes mellitus, type 2. 4. Chronic anemia. 5. History of renal insufficiency. 6. History of chronic tobacco abuse, stopped 10 years ago. 7. History of alcohol abuse. PAST SURGICAL HISTORY: None listed. CURRENT MEDICATIONS: Please refer to nursing notes for a list of verified home medications. ALLERGIES: NONE KNOWN. FAMILY HISTORY: Noncontributory. 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 He currently lives in [place] with his . He stopped smoking ten years ago with over 100 pack year history as well as remote history of alcohol use as well. REVIEW OF SYSTEMS: GENERAL: Some weight loss recently. No fever or chills. HEENT: Hearing and vision is fairly good. LUNGS: Severe shortness of breath upon even mild exertion. Even with portable oxygen concentrator pulse treatment, he becomes extremely dyspneic. Part of the reason is because when he breathes in, he does not trigger the pulse, thereby not getting the oxygen that he requires. CARDIOVASCULAR: No significant chest pains, but recent onset of severe tachyarrhythmias with apparent supraventricular tachycardia, probably related to the underlying acute respiratory failure. GASTROINTESTINAL: Appetite is down. No abdominal pain. GENITOURINARY: No dysuria. EXTREMITIES: No edema, but very thin, diminished muscle tone. NEUROLOGIC: Altered level of consciousness at the time of his respiratory failure at the time of admission to the hospital. PHYSICAL EXAMINATION: VITAL SIGNS: Afebrile. Initial pulse was 120, but increased to 185, reducing to 130 after Adenocard used and placed on BiPAP support. Blood pressure remained fairly good at 140/79 with saturation dropping into the low 80s even on 3 liters nasal cannula oxygen. Weight 47 kg. GENERAL: The patient is less than optimally alert and when improving on BiPAP, was much more alert and stated he felt like he was dying a few minutes earlier before assistance would be able to be given. LUNGS: Markedly diminished breath sounds bilaterally. Faint rhonchi especially in the right lateral lung. CARDIOVASCULAR: Heart tones are very rapid, regular with a supraventricular pattern up to 180 beats per minute with some EKG strain pattern, showing some improvement as the rate lowers. ABDOMEN: Soft with no organomegaly, masses. Bowel tones are diminished. EXTREMITIES: Fairly thin. No significant edema. Diminished muscle tone. NEUROLOGIC: Moving all extremities. Some altered level of consciousness initially with the acute respiratory failure episode, showing improvement on BiPAP. He is able to communicate more clearly as he was feeling better. RADIOLOGY: Chest x-ray shows evidence of advanced chronic obstructive pulmonary disease with a right lung base consolidation suggesting a pneumonia process with treatment initiated. EKG does show supraventricular tachyarrhythmia with associated ST-T changes of significant nature requiring ongoing monitoring and treatment options. ASSESSMENT: 1. Acute respiratory failure with respiratory acidosis with acute retention of CO2 and low oxygen, requiring respiratory support with BiPAP in an effort to try to prevent acute endotracheal intubation support and transfer. The patient has shown some improvement after initial initiation of therapeutic program. 2. Chronic obstructive pulmonary disease, end-stage, with long history of tobacco abuse, now stopped for ten years. 3. Acute right lower lobe pneumonia, probably community acquired, no doubt contributing to the acute respiratory failure. 4. Tachypnea with tachycardia and hypoxia, must continue to observe closely for the possibility of pulmonary emboli, but with the patient requiring less and less oxygen as BiPAP and respiratory support are offered, it tends to point away from a significant pulmonary shunt situation of a pulmonary emboli. 5. Hypokalemia with potassium 3.0. 6. Tachypnea as a symptomatic effect of the significant respiratory distress the patient present with. 7. History of diabetes mellitus, type 2. 8. History of hypertension. 9. History of renal insufficiency in the past. PLAN: Continue supportive care. Arrange for home BiPAP with respiratory and Social Service assistance. Condition is discussed with Dr. Contreras in the clinic whose office will assist with the acquisition of BiPAP for home use which will assist with the patient's ongoing significant end-stage chronic obstructive pulmonary disease after improvement is noted. Continue with IV Rocephin and p.o. azithromycin. Continue course of Solu-Medrol, switching to prednisone tomorrow. Await ambulation studies when able to. Continue close observation with the patient's condition remaining serious with some improvement noted, but requiring ongoing close observation. #[id number] [facility]
[2017-09-21] MEDS ORDERED: KCL 40 MEQ/WATER FOR INJ 100ML 100 ML IVPB ONE (03:23)
[2017-09-21] MEDS: IV SET AND CAP CHANGE INJ INJ SCH (03:29)
[2017-09-21] MEDS: OMEPRAZOLE CAP 20 MG CAP PO SCH (06:09)
[2017-09-21] MEDS ORDERED: SODIUM CHL 0.9% 50ML MIN-BAG+ 50 ML IVPB ONE ×2 (07:10→19:21)
[2017-09-21] MEDS ORDERED: cefTAZidime 1 GM VIAL ONE (07:11)
[2017-09-21] MEDS: IPRATROPIUM/ALBUTEROL 3 ML VIAL INH SCH ×2 (08:53→16:22)
[2017-09-21] MEDS: LUBIPROSTONE 8 MCG PO SCH ×2 (09:05→20:47)
[2017-09-21] MEDS: cefTRIAXone SODIUM 1 GM in SODIUM CHL 0.9% 50ML MIN-BAG+ 50 ML IVPB SCH ×2 (09:07→20:46)
[2017-09-21] MEDS ORDERED: cefTRIAXone SODIUM 1 GM VIAL ONE ×2 (09:07→19:22)
[2017-09-21] MEDS: TIOTROPIUM INHALER INH SCH (09:08)
[2017-09-21] MEDS: BUDESONIDE/FORMOTEROL 160/4.5 60 PUFF/6 GM INH INH SCH (09:08)
[2017-09-21] MEDS: LEVALBUTEROL NEBS 1.25 MG/3 ML VIAL INH PRN ×2 (09:35→13:02)
[2017-09-21] MEDS ORDERED: ADENOSINE INJ 6 MG/2 ML SYG IV ONE (09:44)
[2017-09-21] MEDS: ENOXAPARIN SODIUM 40 MG/0.4 ML SYG SUBCU SCH (10:03)
[2017-09-21] MEDS ORDERED: SODIUM CHLORIDE 0.9% 1000ML 1,000 ML ONE (11:05)
[2017-09-21] MEDS: SODIUM CHLORIDE 0.9% 1000ML 1,000 ML IVS PRN (11:09)
[2017-09-21] MEDS: LEVALBUTEROL NEBS 1.25 MG/3 ML VIAL NEB SCH ×3 (13:10→21:10)
[2017-09-21] MEDS: HYDROcodone 5MG/APAP 325MG 1 EA TAB PO PRN (13:34)
[2017-09-21] MEDS ORDERED: methylPREDNISolone SODIUM SUC 40 MG/ML VIAL ONE (15:14)
[2017-09-21] MEDS ORDERED: METOPROLOL TARTRATE 25 MG TAB PO PRN (17:35)
[2017-09-21] MEDS: TAMSULOSIN 0.4 MG CAP PO SCH (20:45)
[2017-09-21] MEDS: AZITHROMYCIN 250 MG TAB PO SCH (20:45)
[2017-09-22] MEDS: HYDROcodone 5MG/APAP 325MG 1 EA TAB PO PRN ×3 (01:32→20:01)
[2017-09-22] MEDS: LEVALBUTEROL NEBS 1.25 MG/3 ML VIAL INH PRN (01:32)
[2017-09-22] MEDS: SODIUM CHLORIDE 0.9% 1000ML 1,000 ML IVS PRN ×2 (01:37→17:40)
[2017-09-22] MEDS: BUDESONIDE/FORMOTEROL 160/4.5 60 PUFF/6 GM INH INH SCH ×3 (02:30→19:45)
[2017-09-22] MEDS: OMEPRAZOLE CAP 20 MG CAP PO SCH (06:06)
--- NOTE | 2017-09-22 06:46 | RAD ---
EXAM: AP CHEST RADIOGRAPH CLINICAL INDICATION: Pneumonia. COMPARISON: Chest radiograph of September 20, 2017. FINDINGS: Unchanged findings of COPD. Unchanged superimposed left basilar consolidation. The hyperexpanded lungs are otherwise clear. No pneumothorax or free peritoneal gas. IMPRESSION: Unchanged left basilar consolidation in the hyperexpanded lungs. Electronically signed by: Eladio Powell MD 09/22/2017 6:43 AM CDT
[2017-09-22] MEDS: TIOTROPIUM INHALER INH SCH (08:07)
[2017-09-22] MEDS: LEVALBUTEROL NEBS 1.25 MG/3 ML VIAL NEB SCH ×4 (08:07→19:45)
[2017-09-22] MEDS ORDERED: SODIUM CHL 0.9% 50ML MIN-BAG+ 50 ML IVPB ONE ×2 (08:56→19:36)
[2017-09-22] MEDS ORDERED: cefTRIAXone SODIUM 1 GM VIAL ONE ×2 (08:56→19:36)
[2017-09-22] MEDS: LUBIPROSTONE 8 MCG PO SCH ×2 (09:00→20:04)
[2017-09-22] MEDS: predniSONE 20 MG TAB PO SCH ×2 (09:01→09:10)
[2017-09-22] MEDS: ENOXAPARIN SODIUM 40 MG/0.4 ML SYG SUBCU SCH (09:01)
[2017-09-22] MEDS: cefTRIAXone SODIUM 1 GM in SODIUM CHL 0.9% 50ML MIN-BAG+ 50 ML IVPB SCH ×2 (09:01→21:11)
[2017-09-22] MEDS: AZITHROMYCIN 250 MG TAB PO SCH (20:01)
[2017-09-22] MEDS: TAMSULOSIN 0.4 MG CAP PO SCH (20:02)
[2017-09-23] MEDS: OMEPRAZOLE CAP 20 MG CAP PO SCH (05:43)
[2017-09-23] MEDS: BUDESONIDE/FORMOTEROL 160/4.5 60 PUFF/6 GM INH INH SCH ×2 (08:01→19:30)
[2017-09-23] MEDS: LEVALBUTEROL NEBS 1.25 MG/3 ML VIAL NEB SCH ×4 (08:02→19:30)
[2017-09-23] MEDS: TIOTROPIUM INHALER INH SCH (08:02)
[2017-09-23] MEDS ORDERED: methylPREDNISolone SODIUM SUC 125 MG/2 ML VIAL IV ONE (08:22)
[2017-09-23] MEDS ORDERED: POTASSIUM CHLORIDE 20 MEQ TAB PO ONE (08:27)
[2017-09-23] MEDS ORDERED: cefTRIAXone SODIUM 1 GM VIAL ONE ×2 (09:05→20:06)
[2017-09-23] MEDS ORDERED: SODIUM CHL 0.9% 50ML MIN-BAG+ 50 ML IVPB ONE ×2 (09:05→20:05)
[2017-09-23] MEDS: LUBIPROSTONE 8 MCG PO SCH ×2 (09:46→20:34)
[2017-09-23] MEDS: ENOXAPARIN SODIUM 40 MG/0.4 ML SYG SUBCU SCH (09:46)
[2017-09-23] MEDS: cefTRIAXone SODIUM 1 GM in SODIUM CHL 0.9% 50ML MIN-BAG+ 50 ML IVPB SCH ×2 (09:46→20:35)
--- NOTE | 2017-09-23 09:52 | PN ---
SUPERVISING PHYSICIAN: Jean Madera MD DATE: 09/22/17 SUBJECTIVE: The patient says he feels much better than yesterday. He continues to get easily exhausted and short of breath with any exertional effort but is on BiPAP. He is able to tolerate nasal cannula this morning. I discussed his code status at length and he is wishing to address his code status by making himself a DNR. Paperwork is in process. We also discussed his end-stage disease process in regards to his lung disease, chronic obstructive pulmonary disease in regard to possibly consulting with hospice for end-stage care and he is in agreement with this and wishes to talk to [facility] with intentions of going on to [facility] once discharged from the hospital this time. I discussed with him in regards to his elevated troponin and the possibility that he had had a myocardial infarction due to severe hypoxemia and his extensive lung dysfunction, again discussion was towards less aggressive management in regards to his resuscitative status. OBJECTIVE: VITAL SIGNS: Temperature 97.6, pulse 112, blood pressure 146/83, respirations 18, saturation 97% on nasal cannula at two liters. I&O: Positive balance of 746 with 1846 in, 1100 out. Weight 46.4 kilograms. CHEST: Lung sounds were diminished towards the bases bilaterally with continued rhonchi heard more so on the right than the left in the posterolateral field. HEART: Regular rate and rhythm showing a more controlled rate. ABDOMEN: Soft, non-tender, positive bowel sounds. EXTREMITIES: No cyanosis, clubbing, or edema. NEUROLOGIC: He is alert and oriented x 3. LABORATORY: White count 5,900, hemoglobin 12.5, hematocrit 37.1, platelet count 209,000. Differential does show a left shift. Chemistries show normal electrolytes today with potassium down to 3.9, BUN 15, creatinine 0.77, blood sugar 139. Troponin was up to 1.96 this morning from last one at 10 o'clock yesterday afternoon of 0.02 as well as CK was up to 223. MICROBIOLOGY: Blood cultures remain negative at 24 hours. RADIOLOGY: Repeat chest x-ray this morning, single view chest, shows unchanged left basilar consolidation with hyperexpanded lungs. ASSESSMENT: 1. Acute respiratory failure with respiratory acidosis with acute retention of CO2 and low oxygen requiring support with BiPAP to prevent further intubation support and transfer with the patient showing improvement in changing his resuscitation status to Do Not Resuscitate and requesting possibly consultation with hospice care. 2. Chronic obstructive pulmonary disease, end-stage, with long history of tobacco abuse having stopped for ten years, again looking to go to hospice care once discharged to continue to require a noninvasive ventilatory support that is showing improvement. 3. Acute right lower lobe pneumonia, community acquired, contributing to #1. 4. Tachypnea with tachycardia and hypoxia, requiring ongoing management with BiPAP assistance. 5. Tachypnea as a symptomatic effect of the significant respiratory distress related to #1 and showing improvement with BiPAP. 6. Elevated troponin with a non-STEMI secondary to acute respiratory failure. requiring BiPAP for ventilatory assistance with patient changing his code status to a Do Not Resuscitate and without any current mention of chest pains. 7. History of diabetes mellitus, type 2, stable. 8. Hypertension. 9. History of renal insufficiency, stable.. PLAN: Will continue using BiPAP for respiratory assistance as needed and will continue with antibiotic therapy as initiated with Rocephin, Azithromycin and aggressive palpitations hygiene with continued prednisone p.o. as he has shown good improvement. If the patient shows acute decline, certainly we will consider administration of more aggressive corticosteroid management given his end-stage lung dysfunction. Will continue to monitor his heart rate closely and treat as needed. Currently, he is on Lopressor 25 mg b.i.d. I have made arrangements for hospice with [facility] for a consultation and anticipate discharge in the near future to continue with outpatient management. Will anticipate possible discharge tomorrow or Sunday if clinically stable and until the continue to monitor and treat appropriately. #[id number] [facility]
[2017-09-23] MEDS: PANTOPRAZOLE SODIUM IV 40 MG VIAL IV SCH (10:10)
[2017-09-23] MEDS: SODIUM CHLORIDE 0.9% 1000ML 1,000 ML IVS PRN (11:39)
[2017-09-23] MEDS: HYDROcodone 5MG/APAP 325MG 1 EA TAB PO PRN ×3 (11:40→23:46)
[2017-09-23] MEDS: methylPREDNISolone SODIUM SUC 40 MG/ML VIAL IV SCH (14:23)
--- NOTE | 2017-09-23 14:49 | PN ---
SUPERVISING PHYSICIAN: Jean Madera MD DATE: 09/23/17 SUBJECTIVE: The patient has been having some anxiety issues wearing CPAP but has been doing well with some Ativan. He continues to have significant desaturation event. He was able to visit with hospice yesterday with a plan of going on to hospice care once discharged. He has had no reported chest pain and remains afebrile. OBJECTIVE: VITAL SIGNS: Temperature 98, blood pressure 148/80, respirations 19, saturation 98% on BiPAP and 25% FI02 and 93% on nasal cannula at two liters at rest. I&O: Negative balance of 354 with 3296 in, 3650 out. Weight 47.4 kilograms. CHEST: Lung sounds are severely diminished throughout with some some notable inspiratory wheezing today. HEART: Regular rate and rhythm but showing tachycardiac rhythm on the monitor. ABDOMEN: Soft, non-tender, positive bowel sounds. EXTREMITIES: No cyanosis, clubbing, or edema. NEUROLOGIC: He is alert and oriented x 3. LABORATORY: White count remains within normal limits at 5,900, hemoglobin 12.5 , hematocrit 37.1, platelet count 209,000. Differential shows to continue with a left shift. Chemistries show a mild hyponatremia today of 3.2 with BUN 9, creatinine 0.45, calcium 8.5. Troponin is returning to baseline at 1.02 today. CK is within normal limits at 113. . MICROBIOLOGY: Blood cultures remain negative at 48 hours. Sputum culture still pending. RADIOLOGY: Chest x-ray is repeated this morning.. ASSESSMENT: 1. Acute respiratory failure with respiratory acidosis and acute C02 retention and hypoxic event requiring BiPAP for further assistance with the patient being a DMR status at this point and having recently consulted with hospice care for end-stage management of his chronic obstructive pulmonary disease showing slow improvement requiring initiation of corticosteroids today. 2. Chronic obstructive pulmonary disease, end-stage, with long history of tobacco abuse having stopped ten years previous, requesting hospice care once discharged to and continued for noninvasive ventilatory support with slow improvement.. 3. Acute right lower lobe pneumonia, community acquired, contributing to #1, persistent.. 4. Elevated troponin with a non-STEMI secondary to acute respiratory failure and ischemic event requiring BiPAP and ventilatory assistance with patient being a DNR status with no reported chest pain with troponins returning to baseline. 5. History of diabetes mellitus, type 2, stable. 6. Hypertension. 7. History of renal insufficiency. 8. 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 PLAN: Will continue utilizing BiPAP with parenteral antibiotics as initiated with Rocephin and azithromycin. He was on prednisone p.o. but has shown a slight decrease in his lung functionality, therefore we will add Solu-Medrol IV dose of 60 mg with close monitoring and go to 40 every 12 hours for 2 doses. Will utilize Ativan low-dose as needed for anxiety issues and assistance with utilizing BiPAP. He did have a discussion with [facility] and once discharged, plans to go on to their services. Will closely monitor his heart rate and possibly need to increase Lopressor somewhat to add additional beta blockade to assist with further rate control if needed. Will continue to monitor closely until discharge. Anticipate discharge once clinically stable to hospice care with [facility] and until then, continue to monitor and treat appropriately. #[id number] MTDD
[2017-09-23] MEDS: TAMSULOSIN 0.4 MG CAP PO SCH (20:34)
[2017-09-23] MEDS: AZITHROMYCIN 250 MG TAB PO SCH (20:34)
[2017-09-24] MEDS: IV SET AND CAP CHANGE INJ INJ SCH (02:36)
[2017-09-24] MEDS: methylPREDNISolone SODIUM SUC 40 MG/ML VIAL IV SCH (02:36)
[2017-09-24] MEDS: SODIUM CHLORIDE 0.9% 1000ML 1,000 ML IVS PRN (02:36)
[2017-09-24] MEDS: PANTOPRAZOLE SODIUM IV 40 MG VIAL IV SCH (06:19)
[2017-09-24] MEDS: OMEPRAZOLE CAP 20 MG CAP PO SCH (06:20)
--- NOTE | 2017-09-24 07:18 | RAD ---
EXAM DESCRIPTION: Chest,1 View CLINICAL HISTORY: end stage COPD COMPARISON: September 22, 2017 FINDINGS: The cardiomediastinal silhouette is unremarkable. Subsegmental atelectasis or scarring is noted in the left lung base, stable or slightly decreased from the previous study. This could also represent resolving pneumonia. The lungs are hyperinflated. There is no pneumothorax or acute fracture. IMPRESSION: Pulmonary hyperinflation consistent with COPD with interstitial prominence in the left lung base, slightly improved from 2 days prior. This may represent atelectasis or resolving pneumonia. Electronically signed by: Dilip Banegas MD 09/24/2017 7:15 AM CDT
[2017-09-24] MEDS: TIOTROPIUM INHALER INH SCH (09:01)
[2017-09-24] MEDS: BUDESONIDE/FORMOTEROL 160/4.5 60 PUFF/6 GM INH INH SCH (09:01)
[2017-09-24] MEDS: LEVALBUTEROL NEBS 1.25 MG/3 ML VIAL NEB SCH ×2 (09:01→12:47)
[2017-09-24] MEDS ORDERED: SODIUM CHL 0.9% 50ML MIN-BAG+ 50 ML IVPB ONE (09:25)
[2017-09-24] MEDS ORDERED: cefTRIAXone SODIUM 1 GM VIAL ONE (09:25)
[2017-09-24] MEDS ORDERED: ALBUTEROL INHALER 64 PUFF/8GM INH PRN (09:26)
[2017-09-24] MEDS: LUBIPROSTONE 8 MCG PO SCH (09:26)
[2017-09-24] MEDS: ENOXAPARIN SODIUM 40 MG/0.4 ML SYG SUBCU SCH (09:46)
[2017-09-24] MEDS: cefTRIAXone SODIUM 1 GM in SODIUM CHL 0.9% 50ML MIN-BAG+ 50 ML IVPB SCH (09:46)
[2017-09-24 11:28] VITALS: BP 127/72; TEMP 98
[2017-09-24] MEDS ORDERED: PNEUMOCOCCAL VACCINE 0.5 ML INJ ONE (11:42)
[2017-09-24] MEDS ORDERED: PNEUMOCOCCAL VACCINE 0.5 ML INJ IM ONE (11:43)
[2017-09-24 14:01] VITALS: O2SAT 96
--- NOTE | 2017-09-24 19:51 | DS ---
SUPERVISING PHYSICIAN: Moises Contreras M.D. ADMISSION DIAGNOSIS: 1. Acute respiratory failure with respiratory acidosis requiring BiPAP. 2. Chronic obstructive pulmonary disease exacerbation. 3. Right lower lobe pneumonia. 4. Hypokalemia. 5. Diabetes mellitus. 6. Hypertension. 7. Renal insufficiency. DISCHARGE DIAGNOSIS: 1. Acute respiratory failure with respiratory acidosis requiring BiPAP. 2. Chronic obstructive pulmonary disease exacerbation. 3. Right lower lobe pneumonia. 4. Hypokalemia. 5. Diabetes mellitus. 6. Hypertension. 7. Renal insufficiency. HOSPITAL COURSE: This is a 72 year-old male patient who came to the Emergency Room due to worsening shortness of breath. The patient is always short of breath and he has end stage lung disease with COPD. Last week he had seen Dr. Contreras as an outpatient and at that point was not as bad as he was the day of admission. In the Emergency Room, his workup included labs, ABGs and chest x- ray. Chest x-ray was consistent with COPD with a right lower lobe infiltrate. Additionally, he was shown to have respiratory acidosis on ABG. He had hypokalemia as well. For these reasons he was admitted and was actually placed on BiPAP. He was placed on IV steroids as well as scheduled nebulizers and antibiotics. Over the course of 72 hours, the patient improved, however due to the fact that the patient is progressively getting worse and is end stage lung disease, hospice did come talk to him Sunday. PLAN: At that time, they had decided that when he did improve enough to go home , he would go home with home hospice. In addition, it was set up that he would get a BiPAP device to basically use as a respiratory assistive device at home mainly at night. Therefore today the patient will be discharged home under [facility]. I did also write an order for the BiPAP which is once again basically being used as a respiratory assistive device at night and is more palliative in nature. Discharge condition is fair. Diet as per usual diet. Activity as tolerated. DISCHARGE MEDICATIONS: 1. Tapering dose of prednisone. 2. Levaquin 750 mg daily for 5 days. Followup appointment with Dr. Contreras in 1 to 2 weeks. #[id number] [facility]
[2017-09-24] MEDS ORDERED: FLUTICASONE PROP 0.05% NASAL 16 GM BTTL BNAS SCH (21:00)
[2017-09-24] MEDS ORDERED: GABAPENTIN PO SCH (21:00)
[2017-09-24] MEDS ORDERED: [UNRECOGNIZED DRUG - OTHER] PO SCH (21:00)
[2017-09-25] MEDS ORDERED: PANTOPRAZOLE SODIUM TAB 40 MG PO SCH (06:30)
[2017-09-25] MEDS ORDERED: FERROUS GLUCONATE 325 MG TAB PO SCH (09:00)
== END 2017-09-24 14:35 | disposition hospice, home (50) | DRG 189 ==
LOC: ER 21:08 → MS 09-21 03:00 → OBSVTOIN 09-21 03:00
PROVIDERS: ADMIT Emergency Medicine; ATTEND Nurse Practitioner
DX: J96.01 Acute respiratory failure with hypoxia (principal); J18.9 Pneumonia, unspecified organism; I21.4 Non-ST elevation (NSTEMI) myocardial infarction; E87.2 Acidosis; J44.0 Chronic obstructive pulmonary disease with (acute) lower respiratory infection; J44.1 Chronic obstructive pulmonary disease with (acute) exacerbation; E87.1 Hypo-osmolality and hyponatremia; Z51.5 Encounter for palliative care; Z66 Do not resuscitate; E87.6 Hypokalemia; E11.9 Type 2 diabetes mellitus without complications; I10 Essential (primary) hypertension; D64.9 Anemia, unspecified; N28.9 Disorder of kidney and ureter, unspecified; F41.9 Anxiety disorder, unspecified; Z87.891 Personal history of nicotine dependence; Z23 Encounter for immunization